=== PATIENT | female | born 2000 | race Caucasian/White ===

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

== ENCOUNTER 2022-12-22 12:23 | Emergency (ER) | payer MEDICAID ==
[2022-12-22 13:13] LABS: BASOPHILS # (AUTO) 0.1 10^3/uL (0.0-0.1); BASOPHILS % (AUTO) 1.2 %; EOSINOPHILS # (AUTO) 0.2 10^3/uL (0.0-0.7); EOSINOPHILS % (AUTO) 2.9 %; HCT - HEMATOCRIT 37.6 % (37.0-47.0); HGB - HEMOGLOBIN 12.5 g/dL (12.0-16.0); LYMPHOCYTES # (AUTO) 2.2 10^3/uL (1.5-3.5); LYMPHOCYTES % (AUTO) 42.1 %; MEAN CORPUSCULAR HEMOGLOBIN 29.6 pg (27.0-31.0); MEAN CORPUSCULAR HGB CONC 33.2 g/dL (32.0-36.0); MEAN CORPUSCULAR VOLUME 89.1 fL (81.0-99.0); MEAN PLATELET VOLUME 10.1 fL (7.9-10.8); MONOCYTES # (AUTO) 0.5 10^3/uL (0.0-1.0); NEUTROPHILS # (AUTO) 2.3 10^3/uL (1.5-6.6); NEUTROPHILS % (AUTO) 43.6 %; PLT - PLATELET COUNT 204 10^3/uL (130-450); RED BLOOD COUNT 4.22 10^6/uL (4.20-5.40); WHITE BLOOD COUNT 5.2 x10^3/uL (4.8-10.8)
[2022-12-22 13:28] LABS: ALBUMIN 4.2 g/dL (3.2-5.5); ALBUMIN/GLOBULIN RATIO 1.2 (1.0-2.2); BILIRUBIN,TOTAL 0.4 mg/dL (0.2-1.0); CALCIUM 9.7 mg/dL (8.5-10.3); CREATININE 0.6 mg/dL (0.4-1.0); POTASSIUM 3.9 mmol/L (3.5-5.0); TOTAL PROTEIN 7.7 g/dL (6.7-8.2)
[2022-12-22 13:30] LABS: BILIRUBIN,URINE NEGATIVE (NEGATIVE); GLUCOSE, URINE (UA) NEGATIVE (NEGATIVE); KETONES,URINE (UA) NEGATIVE (NEGATIVE); LEUKOCYTE ESTERASE, URINE NEGATIVE (NEGATIVE); NITRITE,URINE NEGATIVE (NEGATIVE); OCCULT BLOOD,URINE NEGATIVE (NEGATIVE); PH,URINE 5.5 PH (5.0-7.5); PROTEIN,URINE NEGATIVE (NEGATIVE); UROBILINOGEN,URINE 0.2 (NORMAL) E.U./dL (NORMAL)
[2022-12-22 13:34] LABS: CLARITY,URINE CLEAR (CLEAR); HCG UR QUAL NEGATIVE
[2022-12-22] MEDS ORDERED: ONDANSETRON 4 MG/2 ML VIAL IVP STA (14:43)
[2022-12-22] MEDS ORDERED: HYDROmorphone 1 MG/ML CARPUJECT IVP STA (14:43)
[2022-12-22] MEDS ORDERED: KETOROLAC 15 MG/ML VIAL IVP STA (14:43)
--- NOTE | 2022-12-22 14:44 | ED Physician Documentation ---
PD HPI ABD PAIN - Stated complaint Stated Complaint: AB PX - Chief complaint Chief Complaint: Abd Pain - History obtained from History obtained from: Patient - Additional information Additional information: Previously healthy monogamous homosexual female on oral control presents with severe left lower quadrant pain radiating to the back starting today. It is a crampy burning pain. It gets worse if she urinates, but it is not in the urethra per se. Also hurts to move or sit up. She is midcycle on her menses. No current bleeding or discharge. No fevers. She is nauseous with this. PD PAST MEDICAL HISTORY - Past Medical History Neuro: Migraines, Seizure disorder Psych: Depression, ADD/ADHD - Past Surgical History Past Surgical History: No - Present Medications Home Medications: Ambulatory Orders Medication Instructions Recorded Confirmed Albuterol Sulfate [Proair Hfa 2 puffs IH Q4HR PRN 10/19/20 10/19/20 Inhaler] Eletriptan HBr [Relpax] 20 mg PO PRN PRN 10/19/20 10/19/20 Escitalopram [Lexapro] 10 mg PO DAILY 10/19/20 10/19/20 Fluticasone [Flonase] 1 spray IN DAILY PRN 10/19/20 10/19/20 Topiramate [Topamax] 25 mg PO BID 10/19/20 10/19/20 cephALEXin [Keflex] 500 mg PO Q6H #28 cap 10/19/20 traZODone [Desyrel] 25 - 50 mg PO HS 10/19/20 10/19/20 Albuterol Sulfate [Proair Hfa 1 - 2 puffs INH Q4H PRN 12/11/20 12/11/20 Inhaler] Eletriptan HBr [Relpax] 20 mg PO DAILY 12/11/20 12/11/20 Escitalopram [Lexapro] 10 mg PO DAILY 12/11/20 12/11/20 Ketorolac [Toradol] 10 mg PO Q6H PRN #30 tablet 12/11/20 Topiramate [Topamax] 25 mg PO DAILY 12/11/20 12/11/20 traZODone [Desyrel] 50 mg PO HS 12/11/20 12/11/20 HYDROcod/ACETAM 5/325 [[place] 5/325] 1 - 2 tab PO Q6H PRN #7 tablet 12/22/22 Peg 3350/Na Sulf,Bicarb,Cl/KCl 4,000 ml PO ONCE 1 Days #1 each 12/22/22 [Golytely] - Allergies Allergies/Adverse Reactions: Allergies Allergy/AdvReac Type Severity Reaction Status Date / Time sumatriptan AdvReac Nausea Verified 12/22/22 12:59 - Social History Does the pt smoke?: No Smoking Status: Never smoker Does the pt drink ETOH?: No Does the pt have substance abuse?: No - Immunizations Immunizations are current?: Yes - POLST Patient has POLST: No PD ED PE NORMAL - Vitals Vital signs reviewed: Yes - General General: Alert and oriented X 3 (Appears to be in pain) - Abdomen Abdomen: Other (Quite tender in the left pelvis without surgical signs.) - Back Back: No spinal TTP - Derm Derm: Normal color, Warm and dry - Extremities Extremities: No edema, No calf tenderness / cord - Neuro Neuro: Alert and oriented X 3, Normal speech Results - Vitals Vitals: Vital Signs - 24 hr 12/22/22 12/22/22 12:57 16:05 Temperature 37.0 C Heart Rate 108 H 105 H Respiratory 16 16 Rate Blood Pressure 134/82 H 128/80 O2 Saturation 98 100 Oxygen O2 Source Room air - Labs Labs: Laboratory Tests 12/22/22 12/22/22 12/22/22 13:09 13:09 13:19 WBC 5.2 RBC 4.22 Hgb 12.5 Hct 37.6 MCV 89.1 MCH 29.6 MCHC 33.2 RDW 12.0 Plt Count 204 MPV 10.1 Neut # (Auto) 2.3 Lymph # (Auto) 2.2 [place] # (Auto) 0.5 Eos # (Auto) 0.2 Baso # (Auto) 0.1 Absolute Nucleated RBC 0.00 Nucleated RBC % 0.0 Sodium 139 Potassium 3.9 Chloride 104 Carbon Dioxide 26 Anion Gap 9.0 BUN 12 Creatinine 0.6 Estimated GFR (MDRD) 127 Glucose 99 Calcium 9.7 Total Bilirubin 0.4 AST 19 ALT 18 Alkaline Phosphatase 35 L Total Protein 7.7 Albumin 4.2 Globulin 3.5 Albumin/Globulin Ratio 1.2 Lipase 34 Urine Color YELLOW Urine Clarity CLEAR Urine pH 5.5 Ur Specific [place] >=1.030 H Urine Protein NEGATIVE Urine Glucose (UA) NEGATIVE Urine Ketones NEGATIVE Urine Occult Blood NEGATIVE Urine Nitrite NEGATIVE Urine Bilirubin NEGATIVE Urine Urobilinogen 0.2 (NORMAL) Ur Leukocyte Esterase NEGATIVE Ur Microscopic Review NOT INDICATED Urine Culture Comments NOT INDICATED Urine HCG, Qual NEGATIVE - Rads (name of study) Pelvic u/s Relevant Findings:: Final report received, EMP independent interpretation of test abd ct Relevant Findings:: Final report received, EMP independent interpretation of test PD Medical Decision Making - ED course ED course: 22-year-old presents with acute left lower quadrant pain. Given the location and radiation to the back as well as being midcycle initial concern was for ovarian torsion, but a pelvic ultrasound did not show any evidence of that. Subsequently went over to CT which are just large stool load and this may be causing her pain. She does have chronic constipation. CBC, CMP, urinalysis, and urine test normal/negative. Feeling better after a single dose of Dilaudid and Toradol here. Departure - Departure Disposition: 01 Home, Self Care Clinical Impression: Abdominal pain Qualifiers: Abdominal location: left lower quadrant Qualified Code(s): R10.32 - Left lower quadrant pain Constipation Qualifiers: Constipation type: slow transit constipation Qualified Code(s): K59.01 - Slow transit constipation Condition: Good Record reviewed to determine appropriate education?: Yes Instructions: ED Constipation Prescriptions: Peg 3350/Na Sulf,Bicarb,Cl/KCl [[place]] 4,000 ml PO ONCE 1 Days #1 each HYDROcod/ACETAM 5/325 [[place] 5/325] 1 - 2 tab PO Q6H PRN #7 tablet PRN Reason: Pain Comments: You were seen today for left lower quadrant pain. A pelvic ultrasound was negative for ovarian pathology. The CAT scan showed significant constipation. I sent a prescription for a very strong laxative as well as some pain medication to be used very sparingly given that it will make your constipation worse. Call your doctor to arrange a follow-up appointment, make the next available appointment. In the interim, return anytime if worse or if new symptoms develop. I am prescribing a short course of narcotic pain medication for you. These are potentially dangerous and addictive medications that should be used carefully. These medications may constipate you. Take an citb-fuj-eomomqn stool softener (docusate) twice daily with plenty of water while taking these medications. If you go 24 hours without a bowel movement, take [id number] miralax, per package instructions. Do not drink or drive while taking these medications. If you received narcotic or sedating medications while in the emergency department, do not drive for 24 hours. Store this medication in a safe, secure place and out of reach of children. It is a violation of federal law to give or sell this medication to another person or to use in a manner other than prescribed. The ED will not refill narcotic prescriptions, including prescriptions lost or stolen. To dispose of unwanted medications: 1. [facility] [address] in [place] has a medication drop box. They accept prescription medications (in pil l form) Sunday through Sunday 9:00 a.m. to 5:00 p.m. 2. The [facility] [place] [facility] accepts prescription medications (in pill form only) for disposal year round. Call for more information. 3. Contact the [facility] for the next [facility] sponsored prescription drug collection event. , [phone], or [phone]; Note that many narcotic pain relievers also contain Tylenol/acetaminophen. Please ensure that your total dose of acetaminophen from all sources does not exceed 3 g (3000 mg) per day.
[2022-12-22 16:05] VITALS: BP 128/80
--- NOTE | 2022-12-22 16:11 | Ultrasound Report ---
PROCEDURE: Pelvic w/Transvag+Doppler Comp INDICATIONS: l pelvic pain TECHNIQUE: Real-time scanning was performed of the pelvic organs, with image documentation. Additional endovagi nal scanning was necessary due to incomplete visualization of the adnexal and endometrial structures by transabdominal scanning. Doppler interrogation was performed of the ovaries bilaterally. COMPARISON: None. FINDINGS: Uterus: Uterus is anteverted and normal in size at 6.9 x 2.5 x 3.3 cm. The myometrium is homogeneou s. The endometrium measures 3.3 mm in combined thickness. Ovaries: The right ovary measures 3.3 x 1.6 x 1.7 cm, with a calculated ovarian volume of 4.8 cc. T he left ovary measures 3.6 x 1.5 x 1.4 cm, with a calculated ovarian volume of 4 cc. Appropriate blo od flow to the ovaries with Doppler interrogation. Less than 12 follicles can be seen in each ovary . No adnexal masses are seen. No cystic lesions measuring greater than 3 cm. Other: No pathologic free abdominal or pelvic fluid. IMPRESSION: Normal Doppler flow to the ovaries. No abnormality. Reviewed by: Hayden Andres on 12/22/2022 4:10 PM PDT Approved by: Hayden Andres on 12/22/2022 4:10 PM PDT Station ID: [id number]
[2022-12-22] MEDS ORDERED: iohexoL-300 100 ML VIAL ONE (16:14)
--- NOTE | 2022-12-22 16:39 | CT Report ---
PROCEDURE: ABDOMEN/PELVIS W INDICATIONS: IV only, LLQ pain CONTRAST: 100omni 300 TECHNIQUE: After the administration of intravenous contrast, 5 mm thick sections acquired from the diaphragms to the symphysis. 5 mm thick coronal and sagittal reformats were acquired. For radiation dose reducti on, the following was used: automated exposure control, adjustment of mA and/or kV according to neel ent size. COMPARISON: Same day pelvic ultrasound. FINDINGS: Image quality: Excellent. Lung bases and heart: Unremarkable. Liver: No solid mass. Gallbladder and biliary tree: No radiopaque stones or wall thickening. No biliary dilation. Spleen: No splenomegaly. Pancreas: No pancreatic ductal dilation. Adrenals: No adrenal nodule. Kidneys and ureters: No hydronephrosis. No renal cystic lesion which requires follow up. No solid mas s. Bowel and peritoneum: No bowel distension. No pathologic free fluid. Large colonic stool load. Normal appendix. Lymph nodes: No central or retroperitoneal adenopathy. Vessels: No infrarenal aortic aneurysm. PELVIS Reproductive organs: Unremarkable. Bladder: No abnormal wall thickening, accounting for underdistension. Pelvic lymph nodes: No pelvic adenopathy by size criteria. Bones: No aggressive osseous abnormality. Other: No significant ventral or inguinal hernia. IMPRESSION: Large colonic stool load. Otherwise, no findings to explain the patient's left lower quadrant pain. No diverticular disease. No nephrolithiasis. Symmetric ovaries. Reviewed by: Hayden Andres on 12/22/2022 4:38 PM PDT Approved by: Hayden Andres on 12/22/2022 4:38 PM PDT Station ID: [id number]
[2022-12-22] MEDS ORDERED: iohexoL-300 100 ML VIAL IVP ONE (17:08)
== END 2022-12-22 16:59 | disposition home or self-care (01) ==
LOC: ED 12:23
DX: R10.32 Left lower quadrant pain (principal); K59.00 Constipation, unspecified
CPT/HCPCS: 36415; 74177; 76830; 76856; 80053; 81003; 81025; 83690; 85025; 93975; 96374; 96375; 99284; J1170; Q9967; 81001; 87086

== ENCOUNTER 2023-09-15 10:14 | Outpatient (CLI) | payer MEDICAID ==
[2023-09-15 19:29] LABS: BASOPHILS % (AUTO) 1.1 %; EOSINOPHILS # (AUTO) 0.1 10^3/uL (0.0-0.7); EOSINOPHILS % (AUTO) 1.9 %; HGB - HEMOGLOBIN 12.9 g/dL (12.0-16.0); LYMPHOCYTES # (AUTO) 1.7 10^3/uL (1.5-3.5); LYMPHOCYTES % (AUTO) 46.1 %; MEAN CORPUSCULAR HEMOGLOBIN 30.1 pg (27.0-31.0); MEAN CORPUSCULAR HGB CONC 32.3 g/dL (32.0-36.0); MEAN CORPUSCULAR VOLUME 93.2 fL (81.0-99.0); MEAN PLATELET VOLUME 10.7 fL (7.9-10.8); MONOCYTES # (AUTO) 0.4 10^3/uL (0.0-1.0); MONOCYTES % (AUTO) 10.8 %; NEUTROPHILS # (AUTO) 1.4 10^3/uL (1.5-6.6); NEUTROPHILS % (AUTO) 39.8 %; PLT - PLATELET COUNT 195 10^3/uL (130-450); RED BLOOD COUNT 4.29 10^6/uL (4.20-5.40); RED CELL DISTRIBUTION WIDTH 11.9 % (12.0-15.0); WHITE BLOOD COUNT 3.6 x10^3/uL (4.8-10.8)
[2023-09-15 20:00] LABS: ALBUMIN 4.3 g/dL (3.2-5.5); ALBUMIN/GLOBULIN RATIO 1.7 (1.0-2.2); BILIRUBIN,TOTAL 0.5 mg/dL (0.2-1.0); CALCIUM 9.4 mg/dL (8.5-10.3); CREATININE 0.6 mg/dL (0.6-1.3); POTASSIUM 3.9 mmol/L (3.5-4.5); TOTAL PROTEIN 6.8 g/dL (6.4-8.9)
== END 2023-09-15 10:15 | disposition home or self-care (01) ==
LOC: LAB.N 10:14
PROVIDERS: ATTEND Physician Assistant
DX: K62.5 Hemorrhage of anus and rectum (principal); Z79.899 Other long term (current) drug therapy
CPT/HCPCS: 36415; 80053; 85025

== ENCOUNTER 2023-10-11 08:00 | Outpatient (CLI) | payer MEDICAID ==
[2023-10-11 19:08] LABS: BACTERIAL VAGINOSIS DNA POSITIVE (NEGATIVE); CANDIDA GLABRATA DNA NEGATIVE (NEGATIVE); CANDIDA GROUP DNA NEGATIVE (NEGATIVE); CANDIDA KRUSEI DNA NEGATIVE (NEGATIVE); TRICHOMONAS VAGINALIS DNA NEGATIVE (NEGATIVE)
[2023-10-11 20:44] LABS: CHLAMYDIA TRACHOMATIS DNA NEGATIVE (NEGATIVE); NEISSERIA GONORRHOEAE DNA NEGATIVE (NEGATIVE)
== END 2023-10-11 23:59 | disposition home or self-care (01) ==
LOC: LAB.WC 08:00
PROVIDERS: ATTEND Nurse Practitioner
DX: N89.8 Other specified noninflammatory disorders of vagina (principal); Z11.3 Encounter for screening for infections with a predominantly sexual mode of transmission
CPT/HCPCS: 81514; 87491; 87591; 87661

== ENCOUNTER 2023-10-13 10:56 | Outpatient (CLI) | payer MEDICAID ==
[2023-10-13 19:05] LABS: BASOPHILS # (AUTO) 0.1 10^3/uL (0.0-0.1); BASOPHILS % (AUTO) 1.6 %; EOSINOPHILS # (AUTO) 0.2 10^3/uL (0.0-0.7); EOSINOPHILS % (AUTO) 4.2 %; HCT - HEMATOCRIT 39.3 % (37.0-47.0); HGB - HEMOGLOBIN 12.7 g/dL (12.0-16.0); LYMPHOCYTES # (AUTO) 1.7 10^3/uL (1.5-3.5); LYMPHOCYTES % (AUTO) 43.3 %; MEAN CORPUSCULAR HEMOGLOBIN 29.7 pg (27.0-31.0); MEAN CORPUSCULAR HGB CONC 32.3 g/dL (32.0-36.0); MEAN PLATELET VOLUME 10.4 fL (7.9-10.8); MONOCYTES # (AUTO) 0.5 10^3/uL (0.0-1.0); MONOCYTES % (AUTO) 12.6 %; NEUTROPHILS # (AUTO) 1.5 10^3/uL (1.5-6.6); NEUTROPHILS % (AUTO) 38.3 %; PLT - PLATELET COUNT 234 10^3/uL (130-450); RED BLOOD COUNT 4.27 10^6/uL (4.20-5.40); WHITE BLOOD COUNT 3.8 x10^3/uL (4.8-10.8)
[2023-10-13 19:11] LABS: ESTIMATED AVERAGE GLUCOSE 97 mg/dL (70-100)
[2023-10-13 19:33] LABS: THYROID STIMULATING HORMONE 2.12 uIU/mL (0.34-5.60)
[2023-10-15 14:09] LABS: VARICELLA-ZOSTER AB IGG <135 index (Immune >165)
[2023-10-16 00:08] LABS: HBsAG SCREEN Negative (Negative)
[2023-10-16 01:08] LABS: HCV AB Non Reactive (Non Reactive); HIV SCREEN 4TH GENERATION Non Reactive (Non Reactive)
== END 2023-10-13 10:57 | disposition home or self-care (01) ==
LOC: LAB.N 10:56
PROVIDERS: ATTEND Nurse Practitioner
DX: Z30.09 Encounter for other general counseling and advice on contraception (principal)
CPT/HCPCS: 36415; 83036; 84436; 84439; 84443; 84480; 84481; 85025; 86592; 86762; 86787; 86803; 86850; 86900; 86901; 87340; 87389

== ENCOUNTER 2023-10-18 11:10 | Emergency (ER) | payer MEDICAID ==
--- NOTE | 2023-10-18 12:04 | ED Physician Documentation ---
History of Present Illness - Stated complaint Stated Complaint: BACK PX - Chief complaint Chief Complaint: Back Pain - Additonal information Additional information: 23-year-old female presents emergency for back pain. 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 She was seen in urgent care 2 weeks ago she was given muscle relaxers and steroids which seem to help. She went to go follow-up with the chiropractor who said that he did not want to do much unless she had some further testing or was seen by her primary care provider. Patient says that she is now feeling some mild numbness and tingling to the right side of her leg on the anterior portion. PD PAST MEDICAL HISTORY - Past Medical History Past Medical History: Yes Neuro: Migraines, Seizure disorder Psych: Depression, ADD/ADHD Musculoskeletal: Chronic back pain - Past Surgical History Past Surgical History: No - Present Medications Home Medications: Ambulatory Orders Medication Instructions Recorded Confirmed Fluticasone [Flonase] 1 spray IN DAILY PRN 10/19/20 10/18/23 Albuterol Sulfate [Proair Hfa 1 - 2 puffs INH Q4H PRN 12/11/20 10/18/23 Inhaler] Topiramate [Topamax] 25 mg PO DAILY 12/11/20 10/18/23 Cyclobenzaprine [Flexeril] 10 mg PO TID PRN 6 Days #20 tablet 10/18/23 Methylphenidate HCl 20 mg PO BID 10/18/23 10/18/23 [Methylphenidate ER] Venlafaxine ER [Effexor ER] 75 mg PO TID 10/18/23 10/18/23 - Allergies Allergies/Adverse Reactions: Allergies Allergy/AdvReac Type Severity Reaction Status Date / Time sumatriptan AdvReac Nausea Verified 10/18/23 11:24 - Social History Does the pt smoke?: No Smoking Status: Never smoker Does the pt drink ETOH?: No Does the pt have substance abuse?: No - Immunizations Immunizations are current?: Yes - POLST Patient has POLST: No PD ED PE NORMAL - Vitals Vital signs reviewed: Yes - General General: Alert and oriented X 3, No acute distress, Well developed/nourished - HEENT HEENT: Atraumatic, PERRL - Neck Neck: Supple, no meningeal sign, No bony TTP - Cardiac Cardiac: RRR, No gallop, Strong equal pulses, Other (tachy) - Respiratory Respiratory: No respiratory distress, Clear bilaterally - Back Back: No CVA TTP, No spinal TTP - Derm Derm: Normal color, Warm and dry, No rash - Extremities Extremities: No edema - Neuro Neuro: 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 Curvature of the cervical, thoracic, and lumbar spine are within normal limits. Bony features of the shoulders and hips are of equal height bilaterally. Posture is upright, gait is smooth, steady, and within normal limits. No tenderness noted on palpation of the spinous processes. Spinous processes are midline. Cervical, thoracic, and lumbar paraspinal muscles are not tender and are without spasm. No discomfort is noted with flexion, extension, and [id number] rotation of the cervical spine, full range of motion is noted. Full range of motion including flexion, extension, and [id number] rotation of the thoracic and lumbar spine are noted and without discomfort. Straight leg raise test is negative bilaterally. Sensation to the upper and lower extremities is normal bilaterally. No clonus is noted. 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 Dorsi/plantar flexion is normal bilaterally. Results - Vitals Vitals: Vital Signs - 24 hr 10/18/23 10/18/23 10/18/23 11:21 12:36 13:08 Temperature 36.4 C L Heart Rate 138 H 122 H 118 H Respiratory 20 16 16 Rate Blood Pressure 129/79 124/76 O2 Saturation 100 98 98 Oxygen O2 Source Room air PD Medical Decision Making - ED course ED course: This patient presents with back pain most consistent with Lumbago with sciatica. Differential diagnoses includes lumbago versus musculoskeletal spasm / strain versus sciatica. Right straight leg raise positive. No back pain red flags on history or physical. Presentation not consistent with malignancy (lack of history of malignancy, lack of B symptoms), fracture (no trauma, no bony tenderness to palpation), cauda equina (no bowel or urinary incontinence/retention, no saddle anesthesia, no distal weakness), AAA, viscus perforation, osteomyelitis or epidural abscess (no IVDU, vertebral tenderness), renal colic, pyelonephritis (afebrile, no CVAT, no urinary symptoms). Given the clinical picture, no indication for imaging at this time. In regards to her tachycardia patient is on Adderall and I was able to look at her watch that tracks her heart rate and this appears to be within normal limits for her is usually in the 1 teens to 130s. Patient says that she is currently working with her primary care provider to get off Adderall she would like to start working on trying to get . Patient was told that she needs to follow-up with her primary care provider for further evaluation of this and needs to pursue physical therapy she agrees to the plan and understands ER return precautions. All questions answered. Departure - Departure Disposition: Home, Self Care Clinical Impression: Lumbago with sciatica, right side Qualifiers: Chronicity: acute Back pain laterality: right Qualified Code(s): M54.41 - Lumbago with sciatica, right side Instructions: ED Back Care Tips, ED Sciatica Prescriptions: Cyclobenzaprine [Flexeril] 10 mg PO TID PRN 6 Days #20 tablet PRN Reason: Spasms Comments: Thank you for trusting us with your care.As we discussed it is very important follow-up with your primary care provider about your ongoing back pain and consider physical therapy referral. You can take the muscle relaxers I sent you up to 3 times a day but make sure that you are not driving or operating heavy machinery while taking this medication. I would also be consistent with taking 500 mg of Aleve every 12 hours and 650 mg of Tylenol every 6 hours and alternating between 20 minutes of ice 20 minutes of heat and continuing to do some gentle range of motion exercises to your lower back. Please come back to the emergency department for starting develop any fevers or chills, severe worsening back pain at the point where you are noticing weakness and difficulty walking and ambulating, or any worsening shortness of breath or other symptoms. I would also speak with your primary care provider about discontinuing and weaning off of your Adderall as I do believe that this is what is causing your high heart rate. Discharge Date/Time: 10/18/23 13:10
[2023-10-18] MEDS: ACETAMINOPHEN 325 MG TABLET PO STA (12:31)
[2023-10-18] MEDS: CYCLOBENZAPRINE 10 MG TABLET PO STA (12:31)
[2023-10-18 12:37] VITALS: O2SAT 98
[2023-10-18 13:15] VITALS: BP 124/76
== END 2023-10-18 13:10 | disposition home or self-care (01) ==
LOC: ED 11:10
DX: M54.41 Lumbago with sciatica, right side (principal)
CPT/HCPCS: 99282; 99283; A9270

== ENCOUNTER 2023-10-19 09:15 | Outpatient (CLI) | payer MEDICAID ==
--- NOTE | 2023-10-19 19:57 | XRAY Report ---
PROCEDURE: Ribs w/PA Chest 3+V RT INDICATIONS: RIB PAIN, RIGHT SIDED TECHNIQUE: 3 views of the ribs were acquired, along with a single view chest. COMPARISON: Lung bases on CT abdomen pelvis . FINDINGS: Surgical changes and devices: None. Bones and chest wall: No fractures or dislocations. No suspicious bony lesions. Overlying soft tis sues appear unremarkable. Lungs and pleura: No pleural effusions or pneumothorax. Lungs appear clear. Mediastinum: Mediastinal contours appear normal. Heart size is normal. IMPRESSION: No displaced rib fracture or pneumothorax. Reviewed by: Enrique Zelaya MD on 10/19/2023 7:56 PM PDT Approved by: Enrique Zelaya MD on 10/19/2023 7:56 PM PDT Station ID: [id number]
== END 2023-10-19 09:30 | disposition home or self-care (01) ==
LOC: DI.N 09:15
PROVIDERS: ATTEND Nurse Practitioner
DX: R07.81 Pleurodynia (principal)

== ENCOUNTER 2023-11-10 09:49 | Outpatient (CLI) | payer MEDICAID ==
[2023-11-12 23:08] LABS: DHEA-SULFATE 42.9 ug/dL (110.0-431.7)
== END 2023-11-10 09:50 | disposition home or self-care (01) ==
LOC: LAB.N 09:49
PROVIDERS: ATTEND Nurse Practitioner
DX: N92.6 Irregular menstruation, unspecified (principal)
CPT/HCPCS: 36415; 82627; 83001; 83002; 84402; 84403

== ENCOUNTER 2023-11-20 09:42 | Outpatient (CLI) | payer MEDICAID ==
--- NOTE | 2023-11-20 17:19 | XRAY Report ---
Spine Scoliosis Study 2-3V HISTORY: EVALUATE FOR SCOLIOSIS TECHNIQUE: Spine Scoliosis Study 2-3V COMPARISON: 10/29/2016 FINDINGS/IMPRESSION: 12 rib-bearing thoracic type vertebral bodies. 5 nonrib-bearing lumbar-type vertebral bodies. Mild le vocurvature of the lumbar spine, centered at L2-3, new from 2017. No significant cervical facet arthropathy. Mild retrolisthesis of C3 on C4. No prevertebral soft tiss ue edema cervical spine. Intervertebral disc space of the cervical spine is well-maintained. Cervical thoracic junction is not well-visualized. Mild, multilevel degenerative disc disease of the thoracic spine. No significant degenerative disc disease of the lumbar spine. No lumbar facet arthropathy. Visualized vertebral body heights are well-maintained. Reviewed by: Jovita Lazaro MD on 11/20/2023 5:18 PM PDT Approved by: Jovita Lazaro MD on 11/20/2023 5:18 PM PDT Station ID: [email or web address]
== END 2023-11-20 09:43 | disposition home or self-care (01) ==
LOC: DI.N 09:42
PROVIDERS: ATTEND Nurse Practitioner
DX: M51.34 Other intervertebral disc degeneration, thoracic region (principal); M43.12 Spondylolisthesis, cervical region; M41.9 Scoliosis, unspecified

== ENCOUNTER 2023-11-20 09:48 | Outpatient (CLI) | payer MEDICAID ==
[2023-11-21 08:11] LABS: ESTRADIOL 69.3 pg/mL (.); PROGESTERONE 4.2 ng/mL (.)
== END 2023-11-20 09:49 | disposition home or self-care (01) ==
LOC: LAB.N 09:48
PROVIDERS: ATTEND Nurse Practitioner
DX: N92.6 Irregular menstruation, unspecified (principal)
CPT/HCPCS: 36415; 82166; 82670; 84143; 84144

== ENCOUNTER 2023-12-27 09:59 | Outpatient (CLI) | payer MEDICAID | END 2023-12-27 10:00 | disposition home or self-care (01) | LOC: LAB.N 09:59 | PROVIDERS: ATTEND Nurse Practitioner | DX: Z32.00 Encounter for pregnancy test, result unknown (principal) | CPT/HCPCS: 36415; 84702 ==

== ENCOUNTER 2024-02-19 16:18 | Outpatient (CLI) | payer MEDICAID ==
[2024-02-19 21:44] LABS: BACTERIAL VAGINOSIS DNA POSITIVE (NEGATIVE); CANDIDA GLABRATA DNA NEGATIVE (NEGATIVE); CANDIDA GROUP DNA NEGATIVE (NEGATIVE); CANDIDA KRUSEI DNA NEGATIVE (NEGATIVE); TRICHOMONAS VAGINALIS DNA NEGATIVE (NEGATIVE)
== END 2024-02-19 16:19 | disposition home or self-care (01) ==
LOC: LAB.N 16:18
PROVIDERS: ATTEND Obstetrics & Gynecology
DX: N89.8 Other specified noninflammatory disorders of vagina (principal)
CPT/HCPCS: 81514

== ENCOUNTER 2024-04-15 16:09 | Outpatient (CLI) | payer MEDICAID ==
[2024-04-15 21:58] LABS: BACTERIAL VAGINOSIS DNA POSITIVE (NEGATIVE); CANDIDA GLABRATA DNA NEGATIVE (NEGATIVE); CANDIDA GROUP DNA NEGATIVE (NEGATIVE); CANDIDA KRUSEI DNA NEGATIVE (NEGATIVE); TRICHOMONAS VAGINALIS DNA NEGATIVE (NEGATIVE)
== END 2024-04-15 16:10 | disposition home or self-care (01) ==
LOC: LAB.N 16:09
PROVIDERS: ATTEND Obstetrics & Gynecology
DX: L29.8 Other pruritus (principal)
CPT/HCPCS: 81514